=== PATIENT | female | born 1985 | race Caucasian/White ===

== ENCOUNTER 2021-01-26 15:54 | Inpatient (IN) ==
--- NOTE | 2021-01-26 16:09 | Emergency Department Note ---
Impression & Plan Infected hand ED Provider Note NAME: BARBARA NOBEL AGE: 35 SEX: F : 1985 ARRIVES VIA: Walk-In INFORMANT: Patient, ED PROVIDER(S): Valente Vargas MD Chief Complaint: Hand pain, possible infection HPI: Patient does present with concern for hand pain and possible infection. The patient did have a trigger finger release completed in [place] by Dr. Ba on December 06. This was completed on the right fourth digit. Patient is right-hand dominant. The patient states that this got infected and had a opening and washout procedure was started on antibiotics December 26. Patient states that it is opened up again and the patient is having some drainage and was concerned about infection. Patient denies any fevers or chills. The patient is a type I diabetic. The patient states that this has gotten worse and thus had seen somebody on Wednesday in [place]. Patient was told to present here if things worsened. Patient was placed to be plastic surgery for possible repair but is not done so yet. ROS: See HPI for pertinent positives and negatives. A total of 10 systems were reviewed and otherwise negative. Past medical history: See below Surgical history: See below Social history: See below Physical Exam: GENERAL: Wearing a mask. NAD, non-toxic. EYE EXAM: Normal conjunctiva. PERRL, no anisocoria and EOM's grossly intact w/o pain. NECK: Supple, no nuchal rigidity, no adenopathy, non-tender. No signs of meningismus. LUNGS: Clear to auscultation. Normal chest wall mechanics. HEART: Tachycardic and regular, no MRG. ABDOMEN: Abdomen soft, non-tender, normo-active bowel sounds, no masses, no rebo und or guarding. BACK: No CVA TTP. SKIN: No rashes and no bruising. UPPER EXTREMITIES: LOWER EXTREMITIES: Grossly normal, no edema. NEURO EXAM: A&O x3, cranial nerves II-XII grossly intact, normal speech, moves all 4 extremities on command w/o issue. Differential diagnoses: Cellulitis, abscess, MRSA infection, DVT, necrotizing fasciitis, dermatitis, drug eruption, allergic reaction, as well as other pathologies. Course: Patient was seen and evaluated the bedside. Full history physical exam was performed. Cardiac monitoring: An order was placed for continuous cardiac monitoring. The monitor shows a rate of 115 with sinus tachycardia rhythm. MDM: Patient did present with concern for open trigger finger release and possible infection. Blood was obtained along with blood culture and deep culture swab. Patient was started on Rocephin IV and doxycycline given instrumentation. After further review patient does have a white count of 18 and is tachycardic. Believe the patient would benefit from inpatient treatment and potential washout with orthopedics. Vancomycin ordered. The patient does have some swelling to the proximal aspect of the fourth digit. I did speak the on-call hospital Dr. Beltran and the patient was admitted to the medicine service. Past Med/Surg History Medical History Diabetes Trigger finger Surgical History History of carpal tunnel surgery History of hernia surgery Social History Smoking Status: Former smoker Preferred Language: Swedish Feels Safe at Home: Yes Allergies Allergies Allergy/AdvReac Type Severity Reaction Status Date / Time No Known Allergies Allergy Unverified 01/26/21 17:27 Home Meds Home Medications Medication Instructions Recorded Confirmed duloxetine [Cymbalta] 60 mg PO BID 01/26/21 01/26/21 insulin glargine [Lantus Solostar 80 unit SUBCUT QAM 01/26/21 01/26/21 U-100 Insulin] insulin lispro [Humalog U-100 0 sliding scale dose SUBCUT UD 01/26/21 01/26/21 Insulin] naproxen [Naprosyn] 500 mg PO BID 01/26/21 01/26/21 pregabalin [Lyrica] 150 mg PO BID 01/26/21 01/26/21 Results & Data (ED) Vital Signs Vital Signs - 24 hr 01/26/21 15:55 01/26/21 16:21 01/26/21 16:45 Temperature 36.8 C Temperature Source Temporal Artery Scan Oral Pulse Rate 127 H Pulse Rate [Bilateral Finger] Pulse Rhythm [Bilateral Finger] Respiratory Rate 18 Respiratory Depth Blood Pressure 151/93 H Blood Pressure [Right Arm] Blood Pressure Mean 112 Blood Pressure Mean [Right Arm] Blood Pressure Position Sitting Blood Pressure Position [Right Arm] Pulse Oximetry 98 Oxygen Delivery Method Room Air Room Air Sepsis Recent Fever Within 48 Hours No Sepsis New/Unexplained Change in Mental Status No Sepsis Action Taken by Nursing No Action Required 01/26/21 18:18 01/26/21 18:58 Temperature Temperature Source Pulse Rate Pulse Rate [Bilateral Finger] 123 H 108 H Pulse Rhythm [Bilateral Finger] Regular Respiratory Rate 18 Respiratory Depth Normal Blood Pressure Blood Pressure [Right Arm] 145/91 H 144/90 H Blood Pressure Mean Blood Pressure Mean [Right Arm] 109 108 Blood Pressure Position Blood Pressure Position [Right Arm] Sitting Pulse Oximetry 98 89 L Oxygen Delivery Method Room Air Sepsis Recent Fever Within 48 Hours Sepsis New/Unexplained Change in Mental Status Sepsis Action Taken by Alf Medications Current Medication List: was personally reviewed by me Laboratory Data Attestation: I reviewed the patient's lab results. Result diagrams: 01/26/21 16:25 01/26/21 16:25 Lab Results 01/26/21 01/26/21 01/26/21 Range/Units 16:25 16:25 16:25 WBC 18.01 H (4.8-10.8) K/uL RBC 4.46 (4.2-5.4) M/uL Hgb 14.0 (12.0-16.0) g/dL Hct 40.5 (37-47) % MCV 90.8 (80-100) fL MCH 31.4 (25-34) pg MCHC 34.6 (32-36) g/dL RDW Std Deviation 42.4 (36.4-46.3) fL RDW Coeff of Arleth 12.7 (11.5-14.5) % Plt Count 374 (130-400) K/uL MPV 9.7 (7.4-10.4) fL Immature Gran % (Auto) 0.2 % Neut % (Auto) 82.3 % Lymph % (Auto) 12.1 % [place] % (Auto) 4.6 % Eos % (Auto) 0.6 % Baso % (Auto) 0.2 % Neut # (Auto) 14.82 H (1.4-6.5) K/uL Lymph # (Auto) 2.18 (1.2-3.4) K/uL [place] # (Auto) 0.83 H (0.11-0.59) K/uL Eos # (Auto) 0.11 (0-0.5) K/uL Baso # (Auto) 0.03 (0-0.2) K/uL Immature Gran # (Auto) 0.04 H (0.00-0.02) K/uL Sodium 141 (136-145) mmol/L Potassium 4.1 (3.5-5.1) mmol/L Chloride 107 (98-107) mmol/L Carbon Dioxide 26 (21-32) mmol/L Anion Gap 7.0 (3-11) BUN 15 (7-18) mg/dl Creatinine 0.94 (0.6-1.2) mg/dl Est Cr Clr Drug Dosing 75.8 ml/min Est GFR ( Amer) 89.8 ml/min Est GFR (Non-Af Amer) 77.5 ml/min BUN/Creatinine Ratio 15.6 (10-20) Glucose 132 H (70-99) mg/dl Calcium 8.7 (8.5-10.1) mg/dl Procalcitonin < 0.05 (0-0.5) ng/ml COVID-19 Eval Order 01/26/21 Range/Units 17:50 WBC (4.8-10.8) K/uL RBC (4.2-5.4) M/uL Hgb (12.0-16.0) g/dL Hct (37-47) % MCV (80-100) fL MCH (25-34) pg MCHC (32-36) g/dL RDW Std Deviation (36.4-46.3) fL RDW Coeff of Arleth (11.5-14.5) % Plt Count (130-400) K/uL MPV (7.4-10.4) fL Immature Gran % (Auto) % Neut % (Auto) % Lymph % (Auto) % [place] % (Auto) % Eos % (Auto) % Baso % (Auto) % Neut # (Auto) (1.4-6.5) K/uL Lymph # (Auto) (1.2-3.4) K/uL [place] # (Auto) (0.11-0.59) K/uL Eos # (Auto) (0-0.5) K/uL Baso # (Auto) (0-0.2) K/uL Immature Gran # (Auto) (0.00-0.02) K/uL Sodium (136-145) mmol/L Potassium (3.5-5.1) mmol/L Chloride (98-107) mmol/L Carbon Dioxide (21-32) mmol/L Anion Gap (3-11) BUN (7-18) mg/dl Creatinine (0.6-1.2) mg/dl Est Cr Clr Drug Dosing ml/min Est GFR ( Amer) ml/min Est GFR (Non-Af Amer) ml/min BUN/Creatinine Ratio (10-20) Glucose (70-99) mg/dl Calcium (8.5-10.1) mg/dl Procalcitonin (0-0.5) ng/ml COVID-19 Eval Order Covid19 at [facility] Administered Medications Discontinued Medications Doxycycline Hyclate (Doxycycline Hyclate 100 Mg Cap) 100 mg PO NOW STA Stop: 01/26/21 16:23 Last Admin: 01/26/21 18:28 Dose: 100 mg Documented by: [id number] Sodium Chloride (Nss 1000ml) 1,000 mls @ 999 mls/hr IV .Q1H1M JERMAINE Stop: 01/26/21 17:30 Last Admin: 01/26/21 18:28 Dose: 999 mls/hr Documented by: [id number] Ceftriaxone Sodium (Rocephin) 2,000 mg in 70 mls @ 140 mls/hr IV NOW STA Stop: 01/26/21 16:51 Last Admin: 01/26/21 18:28 Dose: 140 mls/hr Documented by: [id number] Ketorolac Tromethamine (Ketorolac 30 Mg/Ml Vial) 30 mg IV NOW STA Stop: 01/26/21 16:21 Last Admin: 01/26/21 18:28 Dose: 30 mg Documented by: [id number] Morphine Sulfate (Morphine Sulfate 4 Mg/Ml 1 Ml Carp\Vial) 4 mg IV NOW STA Stop: 01/26/21 17:20 Last Admin: 01/26/21 18:29 Dose: 4 mg Documented by: [id number] Discharge Plan Visit Data Chief Complaint: Infection Stated Complaint: R HAND TENDON EXP,HAD SURG AT END OF NOVEMBER,THINK INF ED Provider: Valente Vargas Discharge Problem: Infected hand Forms Stand Alone Forms: [facility] [employer] Prescriptions Prescriptions: No Action insulin lispro [Humalog U-100 Insulin] 100 unit/mL solution 0 sliding scale dose subcut UD RF: 0 naproxen [Naprosyn] 500 mg tablet 500 mg PO BID RF: 0 duloxetine [Cymbalta] 60 mg capsule,delayed release(DR/EC) 60 mg PO BID RF: 0 pregabalin [Lyrica] 150 mg capsule 150 mg PO BID RF: 0 Lantus Solostar U-100 Insulin 100 unit/mL (3 mL) insulin pen 80 unit SUBCUT QAM RF: 0
[2021-01-26] MEDS ORDERED: KETOROLAC 30 MG/ML VIAL IV STA (16:20)
[2021-01-26] MEDS ORDERED: cefTRIAXone SODIUM 2,000 MG/70 ML BAG IV STA (16:22)
[2021-01-26] MEDS ORDERED: DOXYCYCLINE HYCLATE 100 MG CAP PO STA (16:22)
[2021-01-26] MEDS ORDERED: SODIUM CHLORIDE 0.9% 1000ML 1,000 ML IV SCH (16:30)
[2021-01-26 17:12] LABS: Basophils # (auto) 0.03 K/uL (0-0.2); Basophils % (auto) 0.2 %; Eosinophils # (auto) 0.11 K/uL (0-0.5); Eosinophils % (auto) 0.6 %; Hematocrit (blood only) 40.5 % (37-47); Immature Granulocytes # (auto) 0.04 K/uL (0.00-0.02); Immature Granulocytes % (auto) 0.2 %; Lymphocytes # (auto) 2.18 K/uL (1.2-3.4); Lymphocytes % (auto) 12.1 %; Mean Corpuscular Hemoglobin 31.4 pg (25-34); Mean Corpuscular Hgb Conc 34.6 g/dL (32-36); Mean Corpuscular Volume 90.8 fL (80-100); Mean Platelet Volume 9.7 fL (7.4-10.4); Monocytes # (auto) 0.83 K/uL (0.11-0.59); Monocytes % (auto) 4.6 %; Neutrophils # (auto) 14.82 K/uL (1.4-6.5); Neutrophils % (auto) 82.3 %; Platelet Count 374 K/uL (130-400); RDW Coefficient of Variation 12.7 % (11.5-14.5); RDW Standard Deviation 42.4 fL (36.4-46.3); Red Blood Count 4.46 M/uL (4.2-5.4); White Blood Count 18.01 K/uL (4.8-10.8)
[2021-01-26] MEDS ORDERED: MoRPHine SULFATE 4 MG/ML 1 ML CARP\\VIAL IV STA (17:19)
[2021-01-26 17:36] LABS: BUN Creatinine Ratio 15.6 (10-20); Calcium 8.7 mg/dl (8.5-10.1); Creatinine Clr Calc Pharmacy 75.8 ml/min; Est GFR (African American) 89.8 ml/min; Est GFR (Non-African American) 77.5 ml/min; Potassium 4.1 mmol/L (3.5-5.1)
--- NOTE | 2021-01-26 18:45 | History & Physical Report ---
Date of Service January 26, 2021 Assessment & Plan (1) Infected hand: Possible tenosynovitis, cultured at wound and blood, is on po Keflex, continues on vancomycin as started in ER, consult orthopedics and control pain wound between breasts, continue packing with Sterile ribbon guaze (2) Depression: recent of partner and daughters father, pt states she must leave by for counselling for daughter, continues on antidepressants (3) Diabetes: Pt is on basal bolus insulin, knows scale and insulin doses by heart, check a1c and follow bsg, states she eats regular diet, limits carbs and covers carbs History of Present Illness Primary Care Provider: NO PCP Patient does present with concern for hand pain and possible infection. The patient did have a trigger finger release completed in [place] by Dr. Ba on December 06. This was completed on the right fourth digit. Patient is right-hand dominant. The patient states that this got infected and had a opening and washout procedure was started on antibiotics December 26. She was seeing [facility] and was told it was looking good. Patient states that it is opened up again, she started Keflex po and the patient drainage worsened. The patient states that this has gotten worse and thus was told by [facility] present here if things worsened. There is yellow discharge from the palm wound that is deep and maybe tendon exposed. Allergies Allergy/AdvReac Type Severity Reaction Status Date / Time No Known Allergies Allergy Unverified 01/26/21 17:27 Home Medications Medication Instructions Recorded Confirmed Type duloxetine [Cymbalta] 60 mg PO BID 01/26/21 01/26/21 History insulin glargine [Lantus Solostar 80 unit SUBCUT QAM 01/26/21 01/26/21 History U-100 Insulin] insulin lispro [Humalog U-100 0 sliding scale dose SUBCUT UD 01/26/21 01/26/21 History Insulin] naproxen [Naprosyn] 500 mg PO BID 01/26/21 01/26/21 History pregabalin [Lyrica] 150 mg PO BID 01/26/21 01/26/21 History Past Med/Surg History Medical History (Updated 01/26/21 @ 19:51 by Wil Beltran MD) Diabetes Trigger finger Surgical History History of carpal tunnel surgery History of hernia surgery Social History Smoking Status: Former smoker Preferred Language: Albanian Feels Safe at Home: Yes Review of Systems Review of Systems: Mild distress and fatigue no headache, no visual changes no speech or swallowing issues no chest pain, pressure or palpitations, open area between breasts that has packing no shortness of breath, cough or wheezes no abdominal pain, nausea or vomiting, diarrhea or constipation no dysuria, hematuria or frequency no focal joint pain or swelling no back pain, CVA tenderness or radicular pain open area and redness with tenderness to the right palm and 4th digit no focal signs of weakness or numbness or altered sensation no complaints of anxiety or depression. Physical Exam Physical Exam: The patient appeared well nourished and normally developed. Vital signs as documented. Head exam is normocephalic atraumatic Neck is without JVD, thyromegaly, or carotid bruits. Lungs are clear to auscultation, no focal loss of breath sounds Cardiac exam, Rhythm is regular.. No murmurs, rubs or gallops. Abdominal exam reveals normal bowel sounds, soft non tender, no masses right hand has erythema and tenderness to palm and 4th finger, open area on palm with yellow discharge(cultured) open area between breasts with packing that was removed and repacked, the wound base is clean and dry Neurologic exam is alert and oriented, no focal loss of strength or sensation Skin is with open areas as described Psychologically is without concerns for anxiety or depression Results & Data Results & Data ([facility]) Vital Signs (Past 12 Hours) Vital Signs Temp Pulse Pulse Resp BP BP Pulse Ox 01/26/21 18:18 123 H 18 145/91 H 98 01/26/21 15:55 98.2 F 127 H 18 151/93 H 98 PG Care Time/CCT Total # of Minutes Spent Total Time Spent with Patient: Total time spent is greater than 50% in coordination of care (as documented) at patient's floor/unit and/or counseling patient: Coding Level of Care Code 34573 Initial Inpt Care Lvl 2 Diagnoses Infected hand L08.9 Depression F32.9 Diabetes E11.9
[2021-01-26] MEDS ORDERED: VANCOMYCIN CONSULT ACTIVE PRN ×2 (18:49→20:51)
[2021-01-26] MEDS ORDERED: SODIUM CHLORIDE 0.9% 1000ML 1,000 ML IV ONE (18:49)
[2021-01-26] MEDS ORDERED: VANCOMYCIN HCL 2,000 MG in SODIUM CHLORIDE 0.9% 500 ML IV ONE (18:49)
[2021-01-26] MEDS ORDERED: MoRPHine SULFATE 2 MG/ML CARP IV PRN (20:51)
[2021-01-26] MEDS ORDERED: ACETAMINOPHEN 500 MG TAB PO PRN (20:51)
[2021-01-26] MEDS ORDERED: GLUCAGON FOR INJ 1 MG VIAL SQ PRN (20:51)
[2021-01-26] MEDS ORDERED: ONDANSETRON INJ 2 MG/ML 2 ML VIAL IV PRN (20:51)
[2021-01-26] MEDS ORDERED: GLUCOSE 10 TABS/TUBE PO PRN (20:51)
[2021-01-26] MEDS ORDERED: GLUCOSE 40% GEL 15 GM TUBE PO PRN (20:51)
[2021-01-26] MEDS ORDERED: DEXTROSE 50% 50 ML SYRINGE IV PRN (20:51)
[2021-01-26] MEDS ORDERED: MoRPHine SULFATE 4 MG/ML 1 ML CARP\\VIAL IV PRN (20:51)
[2021-01-26] MEDS ORDERED: PHARMACY GLYCEMIC MGMT CONSULT PRN (20:59)
[2021-01-26] MEDS: CARBOHYDRATES FOR HYPOGLYCEMIA PO PRN ×2 (21:10→21:37)
[2021-01-26] MEDS: PREGABALIN 150 MG CAP PO SCH (21:14)
--- NOTE | 2021-01-26 21:47 | Pharmacy Report ---
Pharmacy Abx Initial Consult - Date of Service January 26, 2021 - Pharmacy Dosing Scope Date of Consult: 01/26/21 Consultation requested by: Dr. Beltran Pharmacy is consulted to initiate VANCOMYCIN IV dosing therapy, order appropriate labs and adjust drug dose/frequency. - Subjective The patient is a 35 year old F admitted on 01/26/21 19:41. - Objective Height: 5 ft Weight: 77.6 kg Vital Signs (Past 12hrs): Vital Signs Temp Pulse Pulse Resp BP BP Pulse Ox 01/26/21 21:24 36.9 C 98 H 21 145/88 H 97 01/26/21 20:13 110 H 148/87 H 98 01/26/21 18:58 108 H 144/90 H 89 L 01/26/21 18:18 123 H 18 145/91 H 98 01/26/21 15:55 36.8 C 127 H 18 151/93 H 98 Lab Results (24hrs): Laboratory Tests (24 Hours) 01/26/21 01/26/21 01/26/21 16:25 16:25 16:25 WBC 18.01 H Neut # (Auto) 14.82 H Creatinine 0.94 Est Cr Clr Drug Dosing 75.8 Procalcitonin < 0.05 Micro Results: 01/26/21 16:25 Aerobic Blood Culture - Pending Blood Anaerobic Blood Culture - Pending 01/26/21 16:25 Aerobic Blood Culture - Pending Blood Anaerobic Blood Culture - Pending 01/26/21 16:40 Gram Stain - Pending Hand Deep Wound Culture - Pending - Assessment & Plan Assessment 35 year old F admitted with infected R hand, possible tenosynovitis, following trigger release surgery in [place] on December 06. Ortho consulted. Plan Vancomycin IV * Estimated PK Parameters: Vd 0.7 L/kg, Jake 0.067 hr-1, t1/2 ~10hr * Loading dose: 2000mg (~25 mg/kg) * Maintenance dose: 1500mg IV every 12 hours * Patient meets criteria for vancomycin AUC dosing nomogram * AUC/ROSALVA is the preferred PK/PD target for vancomycin * Target AUC/ROSALVA = 400-600 * AUC guided dosing is effective and associated with decreased risk of nephrotoxicity Pharmacy will continue to follow and will adjust dose/frequency as necessary. Thank you.
[2021-01-26] MEDS: INSULIN ASPART 100 UNITS/ML 3 ML PEN SC SCH (22:15)
[2021-01-27] MEDS: DULoxetine HCL 60 MG CAP PO SCH ×2 (00:53→07:37)
[2021-01-27] MEDS: oxyCODONE HCL IR 5 MG TAB (IMMEDIATE RELEASE) PO PRN ×3 (01:23→14:30)
[2021-01-27] MEDS ORDERED: INSULIN ASPART 100 UNITS/ML 3 ML PEN SC ONE (02:00)
[2021-01-27 06:05] LABS: Hematocrit (blood only) 33.1 % (37-47); Hemoglobin 10.9 g/dL (12.0-16.0); Mean Corpuscular Hgb Conc 32.9 g/dL (32-36); Mean Corpuscular Volume 91.2 fL (80-100); Mean Platelet Volume 9.7 fL (7.4-10.4); Platelet Count 320 K/uL (130-400); RDW Coefficient of Variation 12.8 % (11.5-14.5); RDW Standard Deviation 43.2 fL (36.4-46.3); Red Blood Count 3.63 M/uL (4.2-5.4)
[2021-01-27 06:30] LABS: BUN Creatinine Ratio 16.8 (10-20); Calcium 7.9 mg/dl (8.5-10.1); Creatinine Clr Calc Pharmacy 89.8 ml/min; Est GFR (African American) 110.8 ml/min; Est GFR (Non-African American) 95.6 ml/min; Potassium 3.8 mmol/L (3.5-5.1)
[2021-01-27 06:59] LABS: Estimated Average Glucose 240 mg/dl
[2021-01-27] MEDS: PREGABALIN 150 MG CAP PO SCH (07:37)
[2021-01-27] MEDS ORDERED: VANCOMYCIN HCL 1,500 MG in SODIUM CHLORIDE 0.9% 500 ML IV SCH (08:00)
[2021-01-27] MEDS: INSULIN ASPART 100 UNITS/ML 3 ML PEN SC SCH ×3 (08:19→17:25)
--- NOTE | 2021-01-27 08:32 | Pharmacy Report ---
Pharmacy Glycemic Short Note 2 - Date of Service January 27, 2021 - Glycemic Short BSG Results (Last 24 hours): 01/26/21 01/26/21 01/26/21 16:25 21:10 21:31 Glucose 132 H POC Glucose 60 L* 56 L* 01/26/21 01/27/21 01/27/21 21:50 01:21 03:55 Glucose POC Glucose 73 171 H 127 H 01/27/21 01/27/21 05:38 07:53 Glucose 103 H POC Glucose 155 H OUTPATIENT ANTIDIABETIC REGIMEN: * Patient reports 50 units of lantus QAM; Admelog Correction factor 25, Carb ratio 10 * A1c 10% 01/27/21 ASSESSMENT: * Patient did not have any lantus prior to arrival on 01/26, last dose 01/25, mildly hypoglycemic at bedtime, BSGs improved overnight with a fasting of 155 mg/dL * Discussed with patient, she states she usually takes 50 units in the morning but will sometimes adjust/skip doses depending on when she wakes up. She also reports having frequent hypoglycemia at home with no particular time of day. Did discuss a lantus dosage reduction as her insulin seems very basal heavy (0.64 units/kg) and may be contributing to frequent hypoglycemia. Will reduce dose to 20 units this morning, ~0.25 units/kg, she is agreeable to this change. * Will continue home novolog parameters for now, correction factor of 25 and carb ratio of 10~ this is similar to weight based stress of 2 dosing. * Will continue to monitor insulin needs and adjust accordingly. PLAN FOR INPATIENT GLYCEMIC CONTROL: * Hold outpatient oral diabetes medications * Basal insulin * Lantus 20 units SQ x1 * Bolus insulin * NovoLog per scale ACHS or Q6hrs while NPO * Goal Range: Low 110 mg/dL - High 140 mg/dL * Correction Factor: 25 mg/dL/unit * Nutritional / Prandial insulin per carb ratio of 1 unit per 10 grams CHO consumed PLAN FOR DISCHARGE: * tbd, A1c of 10% is above goal range of <7%.
[2021-01-27] MEDS ORDERED: INSULIN GLARGINE SOLOSTAR 100 UNITS/ML 3 ML PEN SQ SCH ×2 (09:00)
--- NOTE | 2021-01-27 11:45 | Orthopedic Consultation ---
Date of Consultation January 27, 2021 Assessment & Plan (1) Infected hand: Infected right hand status post trigger finger release December 06, 2020 with washout on 12/26/2020. We will plan on getting an MRI of the right hand at this time to assess extent of infection. Patient is currently n.p.o. of which we will leave her on until we can decide whether she can be washed out today or not. Await MRI results. Continue current IV antibiotics. Continue current pain management. Continue elevation of right upper extremity. to reassess later today. Supervising Physician Co-Signing Physician Notes Ms. Stovall is a 35-year old female with poorly controlled diabetes who previously underwent a right ring finger trigger release by Dr. Ba in [place] on 12/06/20. She then developed a postoperative wound infection, eventually requiring an irrigation and debridement surgery on 12/26. She was then followed by wound care for several weeks, but had chronic infection, and was directed to [facility] for further care. She reports persistent drainage from the incision in her hand, but feels like it is looking better. She has pain mostly along the small finger, and to a lesser extent the ring finger. She reports that the tendon was easily visible within the wound over the past few weeks, but no longer is. On exam, she has no obvious open incision along the fourth ray and her palm, consistent with a previous trigger incision. There is obvious wound dehiscence, with fibrinous purulent material within the base. The tendon is not immediately visible with finger range of motion. There is a second incision distally at the DIP joint crease that appears better healed without any active drainage. There is relatively mild tenderness to palpation along the flexor tendon sheath of the ring finger between these 2 incisions, but she does have fairly diffuse swelling, erythema, and warmth. She has more significant tenderness to palpation along the flexor tendon sheath of the small finger, with similar swelling and erythema. She has a flexed posture of both the ring and small finger, and some pain with passive extension, worse in the small finger than ring finger. She has fairly significant stiffness in both digits. Intact flexor tendon function at least of the FDP tendon in both digits. Sensation is intact to light touch on the ulnar and radial borders of the ring and small fingers, although subjectively slightly decreased on the radial border of the ring finger. Labs show Hgb A1c 10.0 New MRI of the right hand was reviewed. It shows fluid around the flexor tendon in the ring finger, consistent with flexor tenosynovitis. There is significant volar displacement of the flexor tendons along the course of the proximal phalanx, consistent with disruption of the A2 darlin. Surprisingly minimal fluid around the flexor tendon to the small finger. No bone marrow enhancement suggestive of osteomyelitis. Unfortunately, no outside microbiology culture results from her previous surgeri es are available for review. However, on outside history and physical and discharge paperwork from her admission to [facility] from 12/26 through 12/28, they document wound cultures showed Staph aureus resistant to ampicillin, erythromycin, and penicillin, but not MRSA. Hand wound cultures obtained yesterday here at [facility] are still pending, but preliminarily show Group B Beta Strep. 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 This is in the setting of poorly controlled diabetes. No osteomyelitis on MRI, but it looks like she has disruption of the A2 darlin in the ring finger, which will likely lead to bowstringing of the tendon and poor function in the future. She also has quite a bit of stiffness in the ring and small fingers already. It will be very difficult to get her a well-functioning hand in the future, but the first goal is to clear the infection. This will require an extensive irrigation and debridement surgery, and possibly multiple surgeries. This is urgent, but not emergent since this has been going on for 2 months. I offered her surgical debridement this coming January 30 if she would like to stay as an inpatient, or surgery on her outpatient center next WednesdayFebruary 04. She adamantly wishes to leave the hospital soon as possible, and would much prefer to have the surgery next week as an outpatient. I think this is reasonable, but I recommended that she stay in the hospital until culture results and an antibiotic treatment plan were finalized. Surprisingly, between the time I saw the patient and dictated the consult, she had already left the hospital. Looking at Dr. Beltran's note, it looks like she basically left AMA. She did request narcotics prior to discharge, which I declined. We will get in touch with her to arrange for her outpatient procedure next week. History of Present Illness Reason for Consultation: Right hand infection Attending Physician: Wil Beltran MD History of Present Illness Patient is a 35-year-old female who underwent a trigger finger release on the right hand as well as the left hand at the beginning of November of this year. It was of the right fourth finger. She states that her left incision healed well however her right incision began having problems and became infected. She was started on antibiotics and eventually the wound was washed out on 26 December by her surgeon. Thereafter she was being seen in the office for daily dressing changes and cleaning of the wound. She was then referred to the wound care center in [place] and was continuing to see people there as well. She states that the wound was starting to heal well. She has been taken off of her antibiotics and was continued on general wound care. Over time she began noticing increased pain in the right hand and noticed the wound had opened more and had drainage from the wound itself. As this worsened she was referred to [facility] to be seen by the staff here. She was seen by the hospitalist service here and with what appear to be worsening tenosynovitis and a worsening wound infection she was admitted for IV antibiotics and further care. We have been asked to see her for her hand infection. Allergies Allergy/AdvReac Type Severity Reaction Status Date / Time No Known Allergies Allergy Unverified 01/26/21 17:27 Home Medications Medication Instructions Recorded Confirmed Type Lantus Solostar U-100 Insulin 50 unit SUBCUT QAM 01/26/21 01/27/21 History insulin lispro [Humalog U-100 0 sliding scale dose SUBCUT UD 01/26/21 01/26/21 History Insulin] naproxen [Naprosyn] 500 mg PO BID 01/26/21 01/26/21 History pregabalin [Lyrica] 150 mg PO BID 01/26/21 01/26/21 History levofloxacin 750 mg PO DAILY 14 Days #14 tab 01/27/21 Rx Patient History Medical History Diabetes Trigger finger Surgical History History of carpal tunnel surgery History of hernia surgery Social History Smoking Status: Former smoker Hx Alcohol Use: No Hx Substance Use: No Preferred Language: Yi Communication Ability: Effective Grocery Sacker Required: No Beliefs That Will Affect Care: None Current Living Situation: Family Feels Safe at Home: Yes Assistive Devices: Denture - Upper Review of Systems Review of Systems: All systems reviewed & are unremarkable except as noted in HPI & below Physical Exam Physical Exam: Currently, the patient is sitting up awake and alert and oriented x3. She states she is starting to have increased pain in the right hand at this time. She does look a little bit under duress because of the pain. She is pleasant and cooperative. On examination of her right hand, she removes the dressing. She has a an open wound noted over the fourth MP joint on the palmar aspect. There is no foul odor but there appears to be some purulence at the central portion of it. She has some mild serous drainage noted on her hand in the dressing. She has moderate erythema going down the fourth finger as well as the fifth finger. He has increased pain with passive dorsiflexion and flexion of the fourth and fifth fingers. She states that the fifth finger is worse. She states she does have a little bit of numbness and tingling in the fourth and fifth fingers on palpation but the thumb second and third fingers appear to be unaffected. She has no pain with passive dorsiflexion and flexion of the thumb second and third fingers. She has no pain at her wrist. She is able to go through range of motion with the wrist at this time. She has moderate swelling of the hypothenar eminence with tenderness more towards the fifth MP joint. Erythema is noted. Her thenar eminence is soft and there is no erythema noted. Capillary refill is less than 2 seconds. Of note she also has a wound at the PIP joint of her fourth finger on the palmar aspect that appears macerated. She had a Band-Aid around it and apparently this was also cleaned out during the washout on December 26. It appears macerated today but there is no overt purulent drainage noted. The patient also points to a Band-Aid that is between her breasts on her chest that was a cyst that was removed by the wound team in [place] and has been undergoing regular care by them. Results & Data ([facility]) Vital Signs (Past 12 Hours) Vital Signs Temp Pulse Resp BP Pulse Ox 01/27/21 07:46 36.6 C 103 H 16 121/74 97
--- NOTE | 2021-01-27 14:09 | Hospitalist Progress Note ---
Date of Service January 27, 2021 Assessment & Plan (1) Infected hand: Possible tenosynovitis, cultured at wound and blood, out patient was on po Keflex, continues on vancomycin as started in ER, consult orthopedics and control pain initial was given gram negative coverage too, will not continue as inital wound cultures are gram positive ( and previous cultures show staph aureus ) wound between breasts, continue packing with Sterile ribbon guaze (2) Depression: recent of partner and daughters father, pt states she must leave by for counselling for daughter, continues on antidepressants (3) Diabetes: Pt is on basal bolus insulin, knows scale and insulin doses by heart, check a1c and follow bsg, states she eats regular diet, limits carbs and covers carbs Admission and Anticipated Discharge Date Admission Date: January 26, 2021 Subjective pt is slighlty groggy, but pain control is poor, awaiting MRI of hand for surgical direction, some information has returned from [place], it seems second surgery intra operative wound culture revealed staph resistant pcn, was discharged but her request pending final sensitivities, dischage team chose doxycycline with close follow up. Review of Systems Review of Systems: Mild distress and fatigue no headache, no visual changes no speech or swallowing issues no chest pain, pressure or palpitations, open area between breasts that has packing no shortness of breath, cough or wheezes no abdominal pain, nausea or vomiting, diarrhea or constipation no dysuria, hematuria or frequency no focal joint pain or swelling no back pain, CVA tenderness or radicular pain open area and redness with tenderness to the right palm and 4th digit no focal signs of weakness or numbness or altered sensation no complaints of anxiety or depression. Physical Exam Physical Exam: The patient appeared well nourished and normally developed. Vital signs as documented. Head exam is normocephalic atraumatic Neck is without JVD, thyromegaly, or carotid bruits. Lungs are clear to auscultation, no focal loss of breath sounds Cardiac exam, Rhythm is regular.. No murmurs, rubs or gallops. Abdominal exam reveals normal bowel sounds, soft non tender, no masses right hand has erythema and tenderness to palm and 4th finger, open area on palm with yellow discharge(cultured) open area between breasts with packing that was removed and repacked, the wound base is clean and dry Neurologic exam is alert and oriented, no focal loss of strength or sensation Skin is with open areas as described Psychologically is without concerns for anxiety or depression Results & Data Results & Data ([facility]) Vital Signs (Past 12 Hours) Vital Signs Temp Pulse Resp BP Pulse Ox 01/27/21 07:46 97.9 F 103 H 16 121/74 97 PG Care Time/CCT Total # of Minutes Spent Total Time Spent with Patient: Total time spent is greater than 50% in coordi nation of care (as documented) at patient's floor/unit and/or counseling patient: Coding Level of Care Code 47430 Subseq Hosp Care Lvl 2 Diagnoses Infected hand L08.9 Depression F32.9 Diabetes E11.9
[2021-01-27] MEDS ORDERED: GADOBUTROL 65ML VIAL IV ONE (16:25)
--- NOTE | 2021-01-27 18:28 | Discharge Summary ---
Date of Service January 27, 2021 Principal Diagnosis right hand tenosynovitis preliminary group b beta strep Discharge Exam hand is still with redness and open area, now bandaged with aquacel ag and sterile 4x4 and Kerlex Discharge Data Allergies Allergy/AdvReac Type Severity Reaction Status Date / Time No Known Allergies Allergy Unverified 01/26/21 17:27 Consultations 01/26/21 18:49 ED Decision to Admit Stat 01/26/21 20:51 Consult Orthopedic Surgery Routine Ordered Studies 01/27/21 11:34 MR hand RT wo/w con Routine Diabetes Follow up Diabetes Follow-up Needed for HgbA1c >9% Hospital Course (1) Infected hand: Possible tenosynovitis, cultured at wound and blood, out patient was on po Keflex, vancomycin started in ER, consult orthopedics Dr Riley does not have or time till later in the week and the pt does not want to stay inpatient, reportedly as communicated thru nursing the pt was told she could go home and will have surery in the outpt center as arranged by orthopedics, pt wants to do this, I encouraged pt to stay and told her if her cultures grow resistant organism, she may need to return for antibiotics, I also offered to have second ortho opinion to maybe have earlier surgery, pt did not want to stay to explore this initial was given gram negative coverage too, will not continue as inital wound cultures are gram positive ( and previous cultures show staph aureus ), initially tried to Rx Linezolid but pharmacy did not have and would need prior authorization , since she had failed kefex and doxy previously will rx levofloxacin 750 and hope to have outpt close follow up this is not my choice to d/c but pt refused to stay wound between breasts, continue packing with Sterile ribbon guaze (2) Depression: recent of partner and daughters father, pt states she must leave by for counselling for daughter, continues on antidepressants (3) Diabetes: Pt is on basal bolus insulin, knows scale and insulin doses by heart, check a1c and follow bsg, states she eats regular diet, limits carbs and covers carbs Total Time Total Time Spent Total Time Spent (In Minutes): It required greater than 30 minutes to prepare this patient for discharge Discharge Plan Discharge Items Patient Disposition: Home - Self-Care Reason For Visit: TENOSYNOVITIS RIGHT HAND,POST OPERATIVE Discharge Diagnosis: tenosinovitis to right hand Activity: Per Instructions section Activity Comment: do not submerge wound when bathing, elevate hand when able Non-emergency contact: Primary Care Provider and Surgeon Call non-emergency contact if: you have any medication questions, your symptoms worsen and you have a fever Follow-up/Referrals: Telly Rajan M.D. [Physician] - PCP,NO [Primary Care Provider] - Diet: Carb Count or DM1 Addtl Attending Provider Instructions: please start new antibiotics tonight if your wound or blood cultures show a resistent bacteria you may need to return to the Hospital for IV treatment Please be sure to follow up with Orthopedics Dr Neville please hold cymbalta while taking new antibiotics please wash wound daily with soap and water and dry apply aquacel ag , 4x4 guaze and wrap with kerlex Pending Studies at Discharge: Yes Stand-Alone Forms: My [facility] [employer], Smoking Cessation Medications and DC Order Prescriptions: New levofloxacin 750 mg tablet 750 mg PO DAILY 14 Days Qty: 14 RF: 0 Continued insulin lispro [Humalog U-100 Insulin] 100 unit/mL solution 0 sliding scale dose subcut UD RF: 0 naproxen [Naprosyn] 500 mg tablet 500 mg PO BID RF: 0 pregabalin [Lyrica] 150 mg capsule 150 mg PO BID RF: 0 Lantus Solostar U-100 Insulin 100 unit/mL (3 mL) insulin pen 50 unit SUBCUT QAM RF: 0 Discontinued duloxetine [Cymbalta] 60 mg capsule,delayed release(DR/EC) 60 mg PO BID RF: 0 Discharge Orders: Discharge Order (Routine); Ordered 01/27/21 Ordered By: Wil Martin/Other Patient Handouts: A1C Admission Data Admit Date/Time: 01/26/21 19:41 Attending Provider: Wil Beltran Admit Provider: Wil Beltran Primary Care Provider: PCP,NO Other Providers: Wil Beltran ; Mike Carlson Coding Level of Care Code D/C Day Management >30 mins Diagnoses Infected hand L08.9 Depression F32.9 Diabetes E11.9
--- NOTE | 2021-01-27 18:55 | Magnetic Resonance Report ---
MR hand RT wo/w con HISTORY: Right hand pain and swelling. r/o abscess/tensosynovitis 4th/5th fingers TECHNIQUE: Multiplanar multisequence MRI of the right hand was performed both before and after the in travenous administration of 7.5 cc of Gadavist contrast. COMPARISON STUDY: None. FINDINGS: No fracture or dislocation within the right hand. No abnormal marrow edema or enhancement t o suggest an osteomyelitis. There is dorsal subcutaneous edema. Status post third through fifth digit s. This most pronounced within the fourth finger. There is thickening of the proximal to mid fourth f lexor tendons. There is abnormal soft tissue prominence surrounding the tendon sheath with associated enhancement of the fourth finger. There is also mild soft tissue enhancement seen surrounding the th ird and fifth proximal flexor tendons to the level of the wrist. There is also patchy soft tissue and intramuscular enhancement along the ulnar side of the hand/wrist. No loculated fluid collections to suggest an abscess. IMPRESSION: 1. Abnormal soft tissue enhancement surrounding the majority of the fourth flexor tendons as well as the proximal to mid third and fifth flexor tendons to the level of the wrist. There is associated pat phyllis soft tissue and muscular enhancement seen along the ulnar side of the hand and wrist. This is non specific but can be seen in the setting of an infectious tenosynovitis with a surrounding fasciitis/m yositis. 2. No loculated fluid collections to suggest an abscess. 3. No abnormal marrow edema or enhancement to suggest an osteomyelitis. ACT 112: Negative or not required by law. Electronically signed by: Brandyn Live M.D. 01/27/2021 6:54 PM
[2021-01-28] MEDS ORDERED: INSULIN ASPART 100 UNITS/ML 3 ML PEN SC SCH
[2021-01-28] MEDS ORDERED: VANCOMYCIN TROUGH ONE (07:30)
--- NOTE | 2021-01-31 18:43 | History & Physical Bridge Note ---
Date of Service January 31, 2021 History & Physical Bridge Note called pt with group G strep results did have surgery 01/30 and did have antibiotics changed will attempt to fax culture to Dr meng
== END 2021-01-27 18:17 | disposition home or self-care (01) | DRG 558 ==
LOC: ED 15:54 → 3W 19:41